=== PATIENT | female | born 1970 | race American Indian/Alaskan Native ===

== ENCOUNTER 2019-01-11 13:04 | Outpatient (CLI) | payer BC ==
--- NOTE | 2019-01-12 09:03 | Ultrasound Report ---
TRANSABDOMINAL PELVIC AND TRANSVAGINAL ULTRASOUND HISTORY: LLQ pain, pelvic pressure COMPARISON: None. TECHNIQUE: Routine transabdominal and transvaginal pelvic ultrasound performed. FINDINGS: TRANSABDOMINAL PELVIC ULTRASOUND: Uterus: Enlarged uterus with heterogeneous myometrium. A posterior fundal intramural fibroid measures 3.3 x 2.7 x 3.3 cm. The uterus measures 13.6 x 5.7 x 6.6 cm. Endometrium: Normal in thickness.(4 mm) Right Ovary: Normal size and appearance measuring 3.0 x 2.1 x 2.7 cm. Left Ovary: Normal size and appearance measuring 3.3 x 2.0 x 2.6 cm. Additional findings: Transvaginal exam was performed for better delineation of the endometrium and ov isidoro. However, transvaginal imaging was suboptimal due to body habitus and incomplete emptying of th e urinary bladder. TRANSVAGINAL PELVIC ULTRASOUND: Uterus: Enlarged uterus with heterogeneous myometrium. Poor visualization of the posterior fundal fib roid identified on the transabdominal scan. No additional bubble fibroids identified. Endometrium: Not imaged. Right Ovary: Not seen transvaginally. Left Ovary: Not seen transvaginally. Additional findings: No mass or free fluid. IMPRESSION 1. Enlarged fibroid uterus with a dominant 3.3 cm posterior fundal intramural fibroid. 2. Normal ovaries. 3. Normal endometrium. Signer Name: Pablo Roe MD Signed: 01/12/2019 8:58 AM Workstation Name: [id number]
== END 2019-01-11 13:05 | disposition home or self-care (01) ==
LOC: SPVWC 13:04
PROVIDERS: ATTEND Family Medicine
DX: D25.1 Intramural leiomyoma of uterus (principal)
CPT/HCPCS: 76830; 76856

== ENCOUNTER 2019-02-16 09:32 | Outpatient (CLI) | payer BC ==
--- NOTE | 2019-02-16 12:49 | Magnetic Resonance Report ---
MR PELVIS WITH AND WITHOUT CONTRAST HISTORY: Submucosal leiomyoma of uterus, uterine leiomyoma, left-sided pelvic pain and back pain TECHNIQUE: Multisequence, multiplanar MRI before and after 20 cc of MultiHance intravenously. COMPARISON: Pelvic ultrasound dated 01/11/2019. FINDINGS: The uterus is anteverted. The uterus measures 12.3 x 6.2 x 6.7 cm. An approximate 3.3 cm fibroid is i dentified in the posterior fundal region which appears to have a small submucosal component. There is suggestion of a smaller 1 cm fibroid along the right side of the uterus fundus as well. Following th e administration of IV contrast, the fibroid enhances similar to the uterine myometrium. The endometrial stripe measures 8 mm. The ovaries are normal size, signal and position. A 1.1 cm right ovarian cyst is identified. 2 small millimetric nabothian cysts are noted in the cervix. The bladder, distal ureters, visualized bowel loops and vascular structures in the pelvis are unremar kable. No evidence for pelvic ascites, adenopathy or mass. Normal bone marrow signal in the visualize d pelvis and spine. IMPRESSION: Mild uterine fibroid disease as described above. 1.1 cm right ovarian cyst. Tiny nabothian cysts in the cervix. Signer Name: Jordi Prakash Jr, MD Signed: 02/16/2019 12:45 PM Workstation Name: [id number]
== END 2019-02-16 09:33 | disposition home or self-care (01) ==
LOC: MRI 09:32
PROVIDERS: ATTEND Radiology Diagnostic Radiology
DX: D25.0 Submucous leiomyoma of uterus (principal); N83.201 Unspecified ovarian cyst, right side; N88.8 Other specified noninflammatory disorders of cervix uteri; D25.9 Leiomyoma of uterus, unspecified
CPT/HCPCS: 72197; A9577